=== PATIENT | female | born 1980 | race Two or more races ===

== ENCOUNTER 2016-12-07 16:11 | Emergency (ER) | payer MEDICARE, OTHER ==
--- NOTE | ~2016-12-07 | CR58 ---
[facility] A Service of [facility] & [facility] RADIOLOGY TEXT RESULTS PATIENT: LEA MUKHERJEE LOCATION: [place] : [birth year] UNIT #: [id number] AGE: [address]: Barbie Medeiros APRN SEX: F ORDER DR: [id number] [facility] [address] [place], [place] [address] [id number] E MR#: [id number] Acc #: [id number] NAME: LEA MUKHERJEE : 1980 SEX: F STUDY DATE/TIME: 12/07/2016 15:03 UNIT: [facility] ROOM: STUDY DESCRIPTION: CR Cervical Spine 2 or 3 Views Attending Physician: Barbie Medeiros A.P.R.N. Ordering Physician: [facility] Primary Care Physician: Collins Miller M.D. MEDICAL IMAGING REPORT This report is preliminary unless electronic signature is present EXAM 3 views cervical spine performed on 12/07/2016 HISTORY 36-year-old female status post fall today with neck pain. FINDINGS AP and lateral projections of the cervical spine show satisfactory preservation of the cervical lordosis. The cervical soft tissues are normal. All anterior and posterior elements in the cervical area are anatomically normal without identifiable fracture, dislocation, malignant lytic or sclerotic change, or arthritis. There is no congenital defect apparent. IMPRESSION Normal cervical spine. Dictated by... Oracio Bowles M.D. THIS IS AN ELECTRONICALLY VERIFIED REPORT Oracio Bowles M.D. at 12/10/2016 7:02 PM Leigha TD: 12/07/2016 19:10 JOB #: [id number] MEDICAL IMAGING REPORT COPY
--- NOTE | ~2016-12-07 | CT71 ---
[facility] A Service of [facility] RADIOLOGY TEXT RESULTS PATIENT: LEA MUKHERJEE LOCATION: [facility] : 76 UNIT #: [id number] AGE: [address]: Barbie Medeiros APRN SEX: F ORDER DR: [id number] [facility] [address] [place], [place] [address] [id number] E MR#: [id number] Acc #: [id number] NAME: LEA MUKHERJEE : 1980 SEX: F STUDY DATE/TIME: 12/07/2016 15:39 UNIT: [facility] ROOM: STUDY DESCRIPTION: CT Head Wo Contrast Attending Physician: Barbie Medeiros A.P.R.N. Ordering Physician: Ed Ramírez Irvin M.D. Primary Care Physician: Collins Miller M.D. MEDICAL IMAGING REPORT This report is preliminary unless electronic signature is present EXAM CT brain without contrast media, 12/07/2016. HISTORY Fall today with severe headaches and dizziness. No loss of consciousness. TECHNIQUE Transaxial imaging of the brain was performed without contrast media. FINDINGS The ventricular size and configuration is normal. No intra- or extraaxial mass lesions, fluid collections or mass effect are seen. No focal areas of low attenuation or evidence of acute intracranial hemorrhage. Bone windows are reviewed. Paranasal sinuses are clear. Mastoid air cells are unremarkable. CONCLUSION Normal noncontrast CT of the brain. Dictated by... Eduardo Dickson M.D. THIS IS AN ELECTRONICALLY VERIFIED REPORT Eduardo Dickson M.D. at 12/10/2016 5:07 PM SAMARA/amira TD: 12/07/2016 19:22 JOB #: [id number] MEDICAL IMAGING REPORT COPY
--- NOTE | ~2016-12-07 | CR93 ---
[facility] A Service of [facility] & [facility] RADIOLOGY TEXT RESULTS PATIENT: LEA MUKHERJEE LOCATION: [place] : [birth year] UNIT #: [id number] AGE: [address]: Barbie Medeiros APRN SEX: F ORDER DR: [id number] [facility] [address] [place], [place] [address] [id number] E MR#: [id number] Acc #: [id number] NAME: LEA MUKHERJEE : 1980 SEX: F STUDY DATE/TIME: 12/07/2016 15:17 UNIT: [facility] ROOM: STUDY DESCRIPTION: CR Elbow Min 3 Views Lt Attending Physician: Barbie Medeiros A.P.R.N. Ordering Physician: Ed Ramírez Irvin M.D. Primary Care Physician: Collins Miller M.D. MEDICAL IMAGING REPORT This report is preliminary unless electronic signature is present EXAM 3 views left elbow performed on 12/07/2016. HISTORY 36-year-old female status post fall today with elbow pain. FINDINGS AP and lateral examination of the elbow shows satisfactory articulation of the humerus with the proximal radius and ulna. There is no identifiable fracture, dislocation, joint effusion, or radiopaque foreign body in the soft tissues. IMPRESSION Normal elbow. Dictated by... Oracio Bowles M.D. THIS IS AN ELECTRONICALLY VERIFIED REPORT Oracio Bowles M.D. at 12/10/2016 7:02 PM Stone TD: 12/07/2016 19:12 JOB #: [id number] MEDICAL IMAGING REPORT COPY
--- NOTE | ~2016-12-07 | CR150 ---
[facility] A Service of [facility] & [facility] RADIOLOGY TEXT RESULTS PATIENT: LEA MUKHERJEE LOCATION: [facility] : 76 UNIT #: [id number] AGE: [address]: Barbie Medeiros APRN SEX: F ORDER DR: [id number] [facility] [address] [place], [place] [address] [id number] E MR#: [id number] Acc #: [id number] NAME: LEA MUKHERJEE : 1980 SEX: F STUDY DATE/TIME: 12/07/2016 15:31 UNIT: [facility] ROOM: STUDY DESCRIPTION: CR Hip Min 2 Views Lt Attending Physician: Barbie Medeiros A.P.R.N. Ordering Physician: [facility] Primary Care Physician: Collins Miller M.D. MEDICAL IMAGING REPORT This report is preliminary unless electronic signature is present EXAM 2 views left hip performed on 12/07/2016 HISTORY 36-year-old female with fall today and hip pain. FINDINGS AP and oblique examination of the hip shows adequate mineralization of the bones and a normal anatomic relationship of the femoral head with the acetabulum. There are no hypertrophic changes, fractures, dislocation, or joint capsular distension. No radiopaque foreign body is present about the soft tissues of the hip. IMPRESSION Normal hip. Dictated by... Oracio Bowles M.D. THIS IS AN ELECTRONICALLY VERIFIED REPORT Oracio Bowles M.D. at 12/10/2016 7:02 PM Leigha TD: 12/07/2016 19:21 JOB #: [id number] MEDICAL IMAGING REPORT COPY
--- NOTE | ~2016-12-07 | CR229 ---
[facility] A Service of [facility] & [facility] RADIOLOGY TEXT RESULTS PATIENT: LEA MUKHERJEE LOCATION: [facility] : 76 UNIT #: [id number] AGE: [address]: Barbie Medeiros APRN SEX: F ORDER DR: [id number] [facility] [address] [place], [place] [address] [id number] E MR#: [id number] Acc #: [id number] NAME: LEA MUKHERJEE : 1980 SEX: F STUDY DATE/TIME: 12/07/2016 15:28 UNIT: [facility] ROOM: STUDY DESCRIPTION: CR Shoulder Min 2 View Lt Attending Physician: Barbie Medeiros A.P.R.N. Ordering Physician: Ed Ramírez Irvin M.D. Primary Care Physician: Collins Miller M.D. MEDICAL IMAGING REPORT This report is preliminary unless electronic signature is present EXAM 3 views left shoulder performed on 12/07/2016. HISTORY 36-year-old female with fall today and elbow pain, plus shoulder pain. FINDINGS AP view with internal and external rotation of the shoulder girdle shows satisfactory relationship of the humeral head and glenoid fossa. The joint space is normal. There is no identifiable fracture or dislocation or bony destructive process about the shoulder girdle anatomy. The acromioclavicular joint is normal. There is no radiopaque foreign body in the region. IMPRESSION Normal shoulder. Dictated by... Oracio Bowles M.D. THIS IS AN ELECTRONICALLY VERIFIED REPORT Oracio Bowles M.D. at 12/10/2016 7:02 PM Stone TD: 12/07/2016 19:18 JOB #: [id number] MEDICAL IMAGING REPORT COPY
--- NOTE | ~2016-12-07 | CR169 ---
[facility] A Service of [facility] & [facility] RADIOLOGY TEXT RESULTS PATIENT: LEA MUKHERJEE LOCATION: [facility] : [birth year] UNIT #: [id number] AGE: [address]: Barbie Medeiros APRN SEX: F ORDER DR: [id number] [facility] [address] [place], [place] [address] [id number] E MR#: [id number] Acc #: [id number] NAME: LEA MUKHERJEE : 1980 SEX: F STUDY DATE/TIME: 12/07/2016 15:34 UNIT: [facility] ROOM: STUDY DESCRIPTION: CR Knee 2 Views Lt Attending Physician: Barbie Medeiros A.P.R.N. Ordering Physician: Ed Ramírez Irvin M.D. Primary Care Physician: Collins Miller M.D. MEDICAL IMAGING REPORT This report is preliminary unless electronic signature is present EXAM 3 views left knee performed on 12/07/2016. HISTORY 36-year-old female with fall and knee pain. FINDINGS AP and lateral projection of the knee shows smooth articular anatomy without indication of fracture or dislocation at the major weight-bearing surface of the knee. There is no indication of radiopaque foreign body about the knee surface or joint effusion. IMPRESSION Normal knee. Dictated by... Oracio Bowles M.D. THIS IS AN ELECTRONICALLY VERIFIED REPORT Oracio Bowles M.D. at 12/10/2016 7:02 PM Stone TD: 12/07/2016 19:26 JOB #: [id number] MEDICAL IMAGING REPORT COPY
[~2016-12-07 16:11] MED LIST: BENADRYL25 M1 PO; IBUPROFEN PO; ORUDIS75 M1 PO; PREDNISONE PO; TUSSIONEX PENN473 ML PO; ZITHROMAX PO; [UNRECOGNIZED DRUG - OTHER]
== END 2016-12-07 16:28 | disposition home or self-care (01) ==
LOC: CFTX 16:11
DX: S13.4XXA Sprain of ligaments of cervical spine, initial encounter (principal); S70.02XA Contusion of left hip, initial encounter; S80.02XA Contusion of left knee, initial encounter; S50.02XA Contusion of left elbow, initial encounter; F17.210 Nicotine dependence, cigarettes, uncomplicated; W22.8XXA Striking against or struck by other objects, initial encounter; Y92.89 Other specified places as the place of occurrence of the external cause
CPT/HCPCS: 70450; 72040; 73030; 73080; 73090; 73502; 73560; 96372; 99284; J1885

== ENCOUNTER 2017-04-27 01:02 | Emergency (ER) | payer MEDICARE, OTHER ==
[~2017-04-27] VITALS: Ht 157.5 cm; Wt 56.2 kg
--- NOTE | ~2017-04-27 | CR72 ---
[facility] A Service of [facility] & [facility] RADIOLOGY TEXT RESULTS PATIENT: LEA MUKHERJEE LOCATION: [facility] : 76 UNIT #: [id number] AGE: [address]: Herman Johns MD SEX: F ORDER DR: [id number] [facility] [address] [place], [place] [address] [id number] E MR#: [id number] Acc #: [id number] NAME: LEA MUKHERJEE : 1980 SEX: F STUDY DATE/TIME: 04/27/2017 1:51 UNIT: [facility] ROOM: STUDY DESCRIPTION: CR Chest Single View Portable Attending Physician: Herman Johns M.D. Ordering Physician: Bladimir Helton M.D. Primary Care Physician: Collins Miller M.D. MEDICAL IMAGING REPORT This report is preliminary unless electronic signature is present EXAM Portable chest INDICATIONS Shortness of air for the past 8 weeks. PROCEDURE Frontal view chest COMPARISON 01/07/2011 FINDINGS Heart size normal. No dense consolidation, pleural fluid or pneumothorax. IMPRESSION No active process. Dictated by... Adriano Whitfield M.D. THIS IS AN ELECTRONICALLY VERIFIED REPORT Adriano Whitfield M.D. at 04/27/2017 9:54 PM HANNAH/jian TD: 04/27/2017 08:19 JOB #: [id number] MEDICAL IMAGING REPORT Page 1 of 1 COPY
--- NOTE | ~2017-04-27 | EKG ---
PATIENT: LEA MUKHERJEE UNIT #: [id number] Ventricular Rate: 60 BPM Atrial Rate: 60 BPM P-R Interval: 156 ms QRS Duration: 84 ms Q-T Interval: 412 ms QTC Calculation(Bezet): 412 ms P [place]: 43 degrees Calculated R [place]: 59 degrees Calculated T [place]: 48 degrees Diagnosis Line: Normal sinus rhythm with sinus arrhythmia Diagnosis Line: Normal ECG Diagnosis Line: When compared with ECG of 07-JAN-2011 22:29, Diagnosis Line: Vent. rate has decreased BY 42 BPM Diagnosis Line: Confirmed by JOSELITO RAHMAN MD ([id number]) on Diagnosis Line: 04/27/2017 2:01:58 PM INTERPRETING MD: JOSIAH ANDERSON
[2017-04-27 02:23] LABS: BASOPHIL# 0.1 X10e3 (0-0.3); BASOPHIL% 1.3 % (0-2.5); EOSINOPHIL# 0.1 X10e3 (0-0.7); EOSINOPHIL% 1.3 % (0.0-7.0); HEMATOCRIT 41.1 % (35.0-45.0); HEMOGLOBIN 13.8 gm/dL (12.0-16.0); LYMPHOCYTE# 3.3 X10e3 (1.0-3.5); LYMPHOCYTE% 43.5 % (17.0-45.0); MEAN CELL VOLUME 92.1 FL (83-96); MEAN CORPUSCULAR HEMOGLOBIN 30.9 PG (28-34); MEAN CORPUSCULAR HGB CONC 33.6 g/dL (30-36); MEAN PLATELET VOLUME 7.1 FL (6.5-11.5); MONOCYTE# 0.5 X10e3 (0-1.0); MONOCYTE% 6.2 % (3.0-12.0); NEUTROPHIL# 3.6 X10e3 (1.5-7.1); NEUTROPHIL% 47.7 % (40-75); PLATELET COUNT 284 X10e3 (140-420); RED BLOOD COUNT 4.47 X10e (3.90-5.30); RED CELL DISTRIBUTION WIDTH 13.8 % (11.0-15.5); WHITE BLOOD COUNT 7.6 X10e3 (4.0-10.5)
[2017-04-27 02:24] LABS: DIFF IND NO
[2017-04-27 02:49] LABS: ALBUMIN SERUM 4.4 g/dL (3.5-5.0); BILIRUBIN, DIRECT 0.1 mg/dL (0.0-0.2); BILIRUBIN,INDIRECT 0.2 mg/dL (0.0-0.9); BILIRUBIN,TOTAL 0.3 mg/dL (0.2-2.0); BUN/CREATININE RATIO 11.11; CALCIUM SERUM 9.3 mg/dL (8.4-10.2); CREATININE SERUM 0.9 mg/dL (0.6-1.4); GLOM FILT RATE Estimated 81.2 mL/min (>60); POTASSIUM 3.3 mmol/L (3.5-5.1)
[2017-04-27 03:17] LABS: POC - CKMB <1.0 ng/mL (0.0-7.9); POC - TROPONIN <0.05 ng/mL (<=0.05)
== END 2017-04-27 04:00 | disposition home or self-care (01) ==
LOC: CED 01:02
PROVIDERS: Emergency Medicine
DX: R07.89 Other chest pain (principal); R06.02 Shortness of breath; R00.2 Palpitations; F17.200 Nicotine dependence, unspecified, uncomplicated; F41.9 Anxiety disorder, unspecified
CPT/HCPCS: 36415; 71010; 80048; 80076; 82553; 83880; 84484; 85025; 85379; 93005; 99285